=== PATIENT | male | born 1965 | race Hispanic/Latino ===

== ENCOUNTER 2021-05-21 14:20 | Emergency (ER) | payer OTHER ==
[2021-05-21 15:49] LABS: Hemoglobin 10.4 g/dL (13.5-17.5); MDiff Complete? YES; Mean Corpuscular HGB CONC 33.4 g/dL (32.0-36.0); Mean Corpuscular Hemoglobin 40.9 pg (27.0-33.0); Mean Corpuscular Volume 122.4 fl (81.2-95.1); Mean Platelet Volume 10.3 fl (7.4-10.4); Platelet Count 143 10x3/uL (150-450); RBC Distribution Width 16.9 % (11.5-14.5); Red Blood Cell (RBC) Count 2.54 10x6/uL (4.32-5.72); White Blood Cell (WBC) Count 18.7 10x3/uL (3.5-10.5)
[2021-05-21] MEDS ORDERED: Furosemide 40 MG/4 ML VIAL ONE (15:50)
[2021-05-21] MEDS ORDERED: Nitroglycerin 2% Ointment 1 INCH/1 GM Packet ONE (15:50)
[2021-05-21] MEDS ORDERED: Ventolin HFA Inhaler 60 PUFF INHALER ONE (15:50)
[2021-05-21 15:55] LABS: ALT (SGPT) 97 U/L (8-55); AST (SGOT) 241 U/L (5-34); Albumin 2.2 g/dL (3.5-5.0); Alkaline Phosphatase 170 U/L (40-110); Anion Gap 12 mmol/L (10-20); BUN (Urea Nitrogen) 18 mg/dL (8.4-25.7); Bilirubin, Total 11.7 mg/dL (0.2-1.2); Calc. Creatinine Clearance 0 mL/min (70-130); Calcium 8.2 mg/dL (7.8-10.44); Carbon Dioxide 27 mmol/L (22-29); Chloride 101 mmol/L (98-107); Globulin 3.8 g/dL (2.4-3.5); Glucose 120 mg/dL (70-105); Lipase 55 U/L (8-78); Potassium 4.1 mmol/L (3.5-5.1); Sodium 136 mmol/L (136-145)
[2021-05-21 16:07] LABS: INR-International Normal Ratio 1.5; PTT 34.2 sec (22.0-33.0)
[2021-05-21] MEDS ORDERED: cefTRIAXone\\ROCEPHIN 2 GM VIAL ONE (16:22)
[2021-05-21] MEDS ORDERED: Azithromycin 500 MG VIAL ONE (16:22)
[2021-05-21 16:34] LABS: Eosinophils 1 % (0-10); Lymphocytes 15 % (21-51); Metamyelocyte 2 % (0-0); Monocytes 13 % (0-10); Neutrophil 69 % (42-75)
[2021-05-21 16:35] LABS: Anisocytosis SLIGHT = 6-15 cells (100X) (0-5/hpf); Macrocytosis SLIGHT = 6-15 cells (100X) (0-5/hpf); Platelet Morphology Comment Appears Adequate; Polychromasia SLIGHT = 2-3 cells (100X) (0-2/hpf)
[2021-05-21 17:32] LABS: Bilirubin 1+ (Negative); Blood, Urine 250 (Negative); Clarity Clear (Clear); Glucose, Urine (Dipstick) Normal (Negative); Ketone, Urine Negative (Negative); Leukocyte 100 (Negative); Nitrite Negative (Negative); Protein, Urine (Dipstick) Negative (Neg-Trace)
[2021-05-21 17:38] LABS: WBC/HPF None Seen HPF (0-3)
[2021-05-21 17:39] LABS: Bacteria/HPF None Seen HPF (None Seen); Squamous Epithelial 0-3 HPF (0-3)
[2021-05-21 19:34] LABS: SARS-CoV-2 NAA Rapid Test Not Detected (NotDetected)
[2021-05-21 20:47] LABS: Lactic Acid 2.1 mmol/L (0.5-2.2)
[2021-05-21 23:13] LABS: Troponin I Less than 0.010 ng/mL (< 0.028)
[2021-05-22 04:59] LABS: Mean Corpuscular HGB CONC 34.1 g/dL (32.0-36.0); Mean Corpuscular Volume 120.1 fl (81.2-95.1); Mean Platelet Volume 10.3 fl (7.4-10.4); Platelet Count 134 10x3/uL (150-450); Red Blood Cell (RBC) Count 2.44 10x6/uL (4.32-5.72); White Blood Cell (WBC) Count 16.9 10x3/uL (3.5-10.5)
[2021-05-22] MEDS ORDERED: Furosemide 100 MG/10 ML VIAL ONE (05:02)
[2021-05-22] MEDS ORDERED: Nitroglycerin 2% Ointment 1 INCH/1 GM Packet ONE (05:02)
[2021-05-22 05:09] LABS: INR-International Normal Ratio 1.5; Prothrombin Time 16.7 sec (9.5-12.1)
[2021-05-22 05:12] LABS: ALT (SGPT) 81 U/L (8-55); AST (SGOT) 185 U/L (5-34); Albumin 1.9 g/dL (3.5-5.0); Alkaline Phosphatase 133 U/L (40-110); Anion Gap 10 mmol/L (10-20); BUN (Urea Nitrogen) 18 mg/dL (8.4-25.7); Calc. Creatinine Clearance 0 mL/min (70-130); Calcium 8.1 mg/dL (7.8-10.44); Carbon Dioxide 29 mmol/L (22-29); Chloride 102 mmol/L (98-107); Globulin 3.3 g/dL (2.4-3.5); Glucose 67 mg/dL (70-105); Potassium 3.8 mmol/L (3.5-5.1); Protein, Total 5.2 g/dL (6.0-8.3); Sodium 137 mmol/L (136-145)
[2021-05-22 05:16] LABS: MDiff Complete? YES
[2021-05-22 05:17] LABS: Troponin I Less than 0.010 ng/mL (< 0.028)
[2021-05-22 05:22] LABS: Band 2 % (5-11); Lymphocytes 10 % (21-51); Metamyelocyte 3 % (0-0); Monocytes 9 % (0-10); Neutrophil 75 % (42-75); Nucleated RBC 2 % (0); Reactive Lymphocytes 1 % (0-10)
[2021-05-22 05:23] LABS: Macrocytosis MODERATE=16-30 cells (100X) (0-5/hpf); Polychromasia SLIGHT = 2-3 cells (100X) (0-2/hpf)
[2021-05-22 05:24] LABS: Platelet Morphology Comment Appears Adequate
== END 2021-05-22 10:02 | disposition short-term general hospital (02) ==
LOC: CSHERS 14:20
DX: J18.9 Pneumonia, unspecified organism (principal); I11.0 Hypertensive heart disease with heart failure; I50.9 Heart failure, unspecified; K74.60 Unspecified cirrhosis of liver; J45.909 Unspecified asthma, uncomplicated; D64.9 Anemia, unspecified; Z20.822 Contact with and (suspected) exposure to COVID-19
CPT/HCPCS: 36415; 71045; 80053; 81003; 81015; 83605; 83690; 83880; 84484; 85025; 85610; 85730; 87040; 93005; 94760; 96365; 96366; 96368; 96375; 96376; J0456; J0696; J1940; U0002

== ENCOUNTER 2021-06-13 17:44 | Observation (INO) | payer OTHER ==
[2021-06-13 18:27] LABS: Hemoglobin 9.4 g/dL (13.5-17.5); Mean Corpuscular HGB CONC 33.7 g/dL (32.0-36.0); Mean Corpuscular Hemoglobin 42.2 pg (27.0-33.0); Mean Corpuscular Volume 125.1 fl (81.2-95.1); Mean Platelet Volume 11.7 fl (7.4-10.4); Platelet Count 98 10x3/uL (150-450); RBC Distribution Width 16.7 % (11.5-14.5); Red Blood Cell (RBC) Count 2.23 10x6/uL (4.32-5.72)
[2021-06-13 18:29] LABS: ALT (SGPT) 92 U/L (8-55); AST (SGOT) 258 U/L (5-34); Alkaline Phosphatase 225 U/L (40-110); Anion Gap 12 mmol/L (10-20); BUN (Urea Nitrogen) 20 mg/dL (8.4-25.7); Bilirubin, Total 6.7 mg/dL (0.2-1.2); CK (CPK) 1027 U/L (30-200); Calc. Creatinine Clearance 0 mL/min (70-130); Calcium 8.5 mg/dL (7.8-10.44); Carbon Dioxide 26 mmol/L (22-29); Chloride 101 mmol/L (98-107); Globulin 4.9 g/dL (2.4-3.5); Glucose 88 mg/dL (70-105); MDiff Complete? YES; Protein, Total 6.9 g/dL (6.0-8.3); Sodium 135 mmol/L (136-145)
[2021-06-13 18:57] LABS: Anisocytosis SLIGHT = 6-15 cells (100X) (0-5/hpf); Lymphocytes 37 % (21-51); Macrocytosis SLIGHT = 6-15 cells (100X) (0-5/hpf); Monocytes 15 % (0-10); Neutrophil 48 % (42-75); Nucleated RBC 2 % (0)
[2021-06-13 19:01] LABS: Platelet Morphology Comment Appears Decreased
[2021-06-13 19:03] LABS: INR-International Normal Ratio 1.6; PTT 38.4 sec (22.0-33.0); Prothrombin Time 17.6 sec (9.5-12.1)
[2021-06-13] MEDS ORDERED: Furosemide 40 MG/4 ML VIAL ONE (19:27)
[2021-06-13] MEDS ORDERED: Spironolactone 25 MG TAB PO SCH (21:30)
[2021-06-13 21:40] LABS: Magnesium 1.6 mg/dL (1.6-2.6)
[2021-06-13 22:16] VITALS: BMI 44.6
[2021-06-13 23:36] LABS: SARS-CoV-2 NAA Rapid Test Not Detected (NotDetected)
[2021-06-14 04:33] LABS: ALT (SGPT) 81 U/L (8-55); AST (SGOT) 230 U/L (5-34); Albumin 1.9 g/dL (3.5-5.0); Alkaline Phosphatase 241 U/L (40-110); Anion Gap 9 mmol/L (10-20); BUN (Urea Nitrogen) 21 mg/dL (8.4-25.7); Bilirubin, Total 5.9 mg/dL (0.2-1.2); CK (CPK) 692 U/L (30-200); Calc. Creatinine Clearance 118 mL/min (70-130); Calcium 8.5 mg/dL (7.8-10.44); Carbon Dioxide 28 mmol/L (22-29); Chloride 102 mmol/L (98-107); Globulin 4.7 g/dL (2.4-3.5); Glucose 97 mg/dL (70-105); Potassium 4.1 mmol/L (3.5-5.1); Protein, Total 6.6 g/dL (6.0-8.3); Sodium 135 mmol/L (136-145)
[2021-06-14 04:35] LABS: Syphilis Antibody Nonreactive (Nonreactive); Syphilis Antibody Index 0.12 S/CO (<1.00 Non-Reactive)
[2021-06-14 04:56] LABS: Platelet Count 95 10x3/uL (150-450)
[2021-06-14 05:00] LABS: Hemoglobin 9.5 g/dL (13.5-17.5); MDiff Complete? YES; Mean Corpuscular HGB CONC 34.4 g/dL (32.0-36.0); Mean Corpuscular Hemoglobin 42.4 pg (27.0-33.0); Mean Corpuscular Volume 123.2 fl (81.2-95.1); Mean Platelet Volume 11.1 fl (7.4-10.4); RBC Distribution Width 16.9 % (11.5-14.5); Red Blood Cell (RBC) Count 2.24 10x6/uL (4.32-5.72); White Blood Cell (WBC) Count 11.5 10x3/uL (3.5-10.5)
[2021-06-14 06:17] LABS: Platelet Morphology Comment Appears Decreased
[2021-06-14 06:21] LABS: Band 2 % (5-11); Eosinophils 1 % (0-10); Lymphocytes 25 % (21-51); Metamyelocyte 2 % (0-0); Monocytes 19 % (0-10); Neutrophil 50 % (42-75); Nucleated RBC 2 % (0); Reactive Lymphocytes 1 % (0-10)
[2021-06-14 06:23] LABS: Macrocytosis MODERATE=16-30 cells (100X) (0-5/hpf); Platelet Clumps SLIGHT
[2021-06-14] MEDS: Mometasone 100 MCG/PUFF (1 INHALER) INH SCH ×2 (06:55→19:45)
[2021-06-14 08:30] LABS: MONO NEGATIVE CONTROL ZONE White (Negative) (White); MONO POSITIVE CONTROL Pink Line (Positive) (PINK/RED); Mononucleosis NEGATIVE (NEGATIVE)
[2021-06-14] MEDS ORDERED: RIFAXIMIN 200 MG PO SCH (09:00)
[2021-06-14] MEDS ORDERED: Furosemide 40 MG/4 ML VIAL SLOW IVP SCH (09:00)
[2021-06-14] MEDS ORDERED: Furosemide 40 MG TAB PO SCH (09:00)
[2021-06-14] MEDS: Pantoprazole 40 MG VIAL IVP SCH (09:41)
[2021-06-14] MEDS: Spironolactone 25 MG TAB PO SCH (09:42)
[2021-06-14] MEDS: Folic Acid 1 MG TAB PO SCH (09:43)
[2021-06-14] MEDS: Calcium Carbonate 600 MG + Vit D TAB PO SCH ×2 (09:43→20:18)
[2021-06-14] MEDS: Rifaximin 550 MG TAB PO SCH ×2 (09:43→20:18)
[2021-06-14] MEDS: Aspirin 81 mg Enteric Coated Tablet PO SCH (09:44)
[2021-06-14] MEDS: Thiamine 100 MG TAB PO SCH (09:44)
[2021-06-14] MEDS: Carvedilol 12.5 MG TAB PO SCH ×2 (09:44→15:33)
[2021-06-14 10:18] LABS: Bilirubin Neg (Negative); Blood, Urine 150 (Negative); Glucose, Urine (Dipstick) Normal (Negative); Ketone, Urine Negative (Negative); Leukocyte Negative (Negative); Nitrite Negative (Negative); Urobilinogen Normal mg/dL (Less than 2)
[2021-06-14] MEDS ORDERED: Ibuprofen 200 MG TAB PO PRN (10:36)
[2021-06-14] MEDS ORDERED: Acetaminophen 325 MG TAB PO PRN (10:36)
[2021-06-14 10:37] LABS: Clarity Clear (Clear); Protein, Urine (Dipstick) 15 mg/dl (Neg-Trace)
[2021-06-14] MEDS ORDERED: Morphine IR 10 MG/5 ML UDCUP PO PRN (10:37)
[2021-06-14 10:41] LABS: Urine Culture Reflex No No
[2021-06-14 11:23] LABS: WBC/HPF 0-3 HPF (0-3)
[2021-06-14 11:24] LABS: Bacteria/HPF Rare-Few HPF (None Seen)
[2021-06-14] MEDS: HYDROcodone/Acetaminophen 5/325 mg Tablet PO PRN (12:10)
[2021-06-14] MEDS: Acyclovir 400 mg Tablet PO SCH ×2 (15:33→20:18)
[2021-06-14] MEDS: Furosemide 40 MG/4 ML VIAL SLOW IVP SCH (20:18)
[2021-06-15] MEDS: Mometasone 100 MCG/PUFF (1 INHALER) INH SCH (08:03)
[2021-06-15] MEDS: Pantoprazole 40 MG VIAL IVP SCH (08:42)
[2021-06-15] MEDS: Furosemide 40 MG/4 ML VIAL SLOW IVP SCH (08:42)
[2021-06-15] MEDS: Folic Acid 1 MG TAB PO SCH (08:43)
[2021-06-15] MEDS: Calcium Carbonate 600 MG + Vit D TAB PO SCH (08:43)
[2021-06-15] MEDS: HYDROcodone/Acetaminophen 5/325 mg Tablet PO PRN (08:43)
[2021-06-15] MEDS: Acyclovir 400 mg Tablet PO SCH ×2 (08:43→14:09)
[2021-06-15] MEDS: Rifaximin 550 MG TAB PO SCH (08:44)
[2021-06-15] MEDS: Thiamine 100 MG TAB PO SCH (08:44)
[2021-06-15] MEDS: Spironolactone 25 MG TAB PO SCH (08:44)
[2021-06-15] MEDS: Carvedilol 12.5 MG TAB PO SCH ×2 (08:44→14:09)
[2021-06-15] MEDS: Aspirin 81 mg Enteric Coated Tablet PO SCH (08:44)
[2021-06-15] MEDS ORDERED: FLU VACC QS2021-22(6MOS UP)/PF 60 MCG/0.5 ML SYRINGE IM ONE (09:00)
[2021-06-15 10:21] LABS: Hemoglobin 9.2 g/dL (13.5-17.5); Mean Corpuscular HGB CONC 33.2 g/dL (32.0-36.0); Mean Corpuscular Hemoglobin 41.6 pg (27.0-33.0); Mean Corpuscular Volume 125.3 fl (81.2-95.1); Mean Platelet Volume 10.8 fl (7.4-10.4); Platelet Count 77 10x3/uL (150-450); RBC Distribution Width 17.4 % (11.5-14.5); Red Blood Cell (RBC) Count 2.21 10x6/uL (4.32-5.72)
[2021-06-15 10:22] LABS: MDiff Complete? YES
[2021-06-15 10:41] LABS: ALT (SGPT) 77 U/L (8-55); AST (SGOT) 207 U/L (5-34); Albumin 1.9 g/dL (3.5-5.0); Alkaline Phosphatase 208 U/L (40-110); Anion Gap 9 mmol/L (10-20); BUN (Urea Nitrogen) 22 mg/dL (8.4-25.7); Bilirubin, Total 6.1 mg/dL (0.2-1.2); Calc. Creatinine Clearance 120 mL/min (70-130); Calcium 8.8 mg/dL (7.8-10.44); Carbon Dioxide 30 mmol/L (22-29); Chloride 99 mmol/L (98-107); Globulin 4.8 g/dL (2.4-3.5); Glucose 107 mg/dL (70-105); Magnesium 1.7 mg/dL (1.6-2.6); Phosphorus 3.6 mg/dL (2.3-4.7); Protein, Total 6.7 g/dL (6.0-8.3); Sodium 134 mmol/L (136-145)
[2021-06-15 11:03] LABS: Eosinophils 1 % (0-10); Lymphocytes 29 % (21-51); Monocytes 14 % (0-10); Neutrophil 56 % (42-75)
[2021-06-15 11:04] LABS: Anisocytosis SLIGHT = 6-15 cells (100X) (0-5/hpf); Hypochromia SLIGHT = 6-15 cells (100X) (0-5/hpf); Macrocytosis SLIGHT = 6-15 cells (100X) (0-5/hpf); Platelet Morphology Comment Appears Decreased; Target Cells SLIGHT = 2-5 cells (100X) (0-1/hpf)
[2021-06-15] MEDS ORDERED: Benzocaine 20% Spray 60 ML CAN PO PRN (12:40)
[2021-06-15 17:12] VITALS: TEMP 98
[2021-06-15 17:14] VITALS: BP 126/64
[2021-06-19] MEDS ORDERED: Cyanocobalamin 1000 MCG/ML VIAL IM SCH (09:00)
== END 2021-06-15 19:10 ==
LOC: EEVIPCON 17:44 → CSHERS 17:44 → CSHTELE 21:57
PROVIDERS: ADMIT Family Medicine; ATTEND Family Medicine
DX: R41.82 Altered mental status, unspecified (principal); K74.60 Unspecified cirrhosis of liver; B18.2 Chronic viral hepatitis C; I85.00 Esophageal varices without bleeding; K72.90 Hepatic failure, unspecified without coma; K76.6 Portal hypertension; R60.1 Generalized edema; I10 Essential (primary) hypertension; K21.9 Gastro-esophageal reflux disease without esophagitis; M62.82 Rhabdomyolysis; D53.9 Nutritional anemia, unspecified; Z87.891 Personal history of nicotine dependence; Z79.899 Other long term (current) drug therapy; Z79.82 Long term (current) use of aspirin; Z20.822 Contact with and (suspected) exposure to COVID-19
CPT/HCPCS: 36415; 71045; 74177; 76705; 76870; 80053; 81001; 82140; 82550; 82607; 82746; 83605; 83735; 83880; 84100; 84145; 84484; 85025; 85610; 85730; 86308; 86644; 86645; 86780; 93005; 93306; 93976; 94664; 96374; 96375; 96376; C9113; G0378; J1940; J3475; U0002

== ENCOUNTER 2021-06-24 13:01 | Emergency (ER) | payer OTHER ==
[2021-06-24 14:37] LABS: ALT (SGPT) 87 U/L (8-55); AST (SGOT) 298 U/L (5-34); Albumin 1.6 g/dL (3.5-5.0); Alkaline Phosphatase 144 U/L (40-110); Anion Gap 12 mmol/L (10-20); BUN (Urea Nitrogen) 39 mg/dL (8.4-25.7); Bilirubin, Total 13.2 mg/dL (0.2-1.2); Calc. Creatinine Clearance 0 mL/min (70-130); Calcium 7.6 mg/dL (7.8-10.44); Carbon Dioxide 23 mmol/L (22-29); Chloride 96 mmol/L (98-107); Globulin 3.9 g/dL (2.4-3.5); Glucose 82 mg/dL (70-105); Potassium 4.3 mmol/L (3.5-5.1); Protein, Total 5.5 g/dL (6.0-8.3); Sodium 127 mmol/L (136-145)
[2021-06-24 14:45] LABS: INR-International Normal Ratio 1.7; PTT 46.4 sec (22.0-33.0); Prothrombin Time 18.7 sec (9.5-12.1)
[2021-06-24 16:20] LABS: Hemoglobin 8.9 g/dL (13.5-17.5); Mean Corpuscular HGB CONC 35.7 g/dL (32.0-36.0); Mean Corpuscular Hemoglobin 42.2 pg (27.0-33.0); Mean Platelet Volume 10.9 fl (7.4-10.4); Platelet Count 92 10x3/uL (150-450); RBC Distribution Width 15.8 % (11.5-14.5); Red Blood Cell (RBC) Count 2.11 10x6/uL (4.32-5.72); White Blood Cell (WBC) Count 18.7 10x3/uL (3.5-10.5)
[2021-06-24 16:38] LABS: MDiff Complete? YES; Manual Diff?? YES
[2021-06-24 16:42] LABS: Band 9 % (5-11); Lymphocytes 13 % (21-51); Metamyelocyte 3 % (0-0); Monocytes 7 % (0-10); Neutrophil 67 % (42-75); Reactive Lymphocytes 1 % (0-10)
[2021-06-24 16:43] LABS: Platelet Morphology Comment Appears Decreased
[2021-06-24 16:44] LABS: Macrocytosis MODERATE=16-30 cells (100X) (0-5/hpf)
[2021-06-24 16:45] LABS: Anisocytosis SLIGHT = 6-15 cells (100X) (0-5/hpf); Dohle Bodies SLIGHT; Toxic Granulation SLIGHT
[2021-06-24] MEDS ORDERED: Furosemide 40 MG/4 ML VIAL ONE (17:19)
[2021-06-24] MEDS ORDERED: cefTRIAXone\\ROCEPHIN 2 GM VIAL ONE (17:19)
== END 2021-06-24 22:59 | disposition short-term general hospital (02) ==
LOC: CSHERS 13:01
DX: K76.7 Hepatorenal syndrome (principal); R60.1 Generalized edema; R94.31 Abnormal electrocardiogram [ECG] [EKG]; D64.9 Anemia, unspecified; I10 Essential (primary) hypertension; J45.909 Unspecified asthma, uncomplicated; K21.9 Gastro-esophageal reflux disease without esophagitis; Z87.19 Personal history of other diseases of the digestive system; Z79.82 Long term (current) use of aspirin; Z79.899 Other long term (current) drug therapy
CPT/HCPCS: 80053; 82140; 83605; 83880; 84484; 85025; 85610; 85730; 93005; 96365; 96375; J0696; J1940